=== PATIENT | female | born 1945 | race Caucasian/White ===

== ENCOUNTER → 2017-07-23 | Outpatient (CLI) | payer MEDICARE ==
--- NOTE | 2017-07-23 19:12 | Diagnostic Imaging Report ---
EXAMINATION: Bilateral diagnostic mammogram with tomography. The current study was also evaluated with a Computer Aided Detection (CAD) system. COMPARISON: 07/08/16. INDICATION: Followup asymmetry along the lateral aspect of the left CC projection. FINDINGS: The breasts are composed of heterogenously dense parenchyma which may decrease mammographic sensitivity. There is slightly less prominent asymmetry along the outer aspect of the left breast without adverse development. No definitive underlying mass is seen with tomographic evaluation. Benign-appearing calcifications are seen, bilaterally. IMPRESSION: Stable mammographic findings with the asymmetry along the outer aspect of the left breast demonstrating no definite change. This could be from nonspecific scarring or summation artifact of parenchyma. Another followup in 12 months is recommended to ensure longer-term stability. ACR BI-RADS Category 3: Probably benign findings. Result letter will be mailed to the patient. Note: At least 10% of breast cancer is not imaged by mammography. Dictated by: Dictated on workstation # [id number]
== END ==
LOC: RAD 13:56
PROVIDERS: ATTEND Nurse Practitioner Family
DX: N64.89 Other specified disorders of breast (principal)
CPT/HCPCS: 77066

== ENCOUNTER 2017-12-30 21:22 | Emergency (ER) | payer MEDICARE ==
[~2017-12-30] VITALS: Ht 160 cm; Wt 51.3 kg
--- OUTSIDE RECORDS SUMMARY | 2017-12-30 21:28 | XMS REPORT | CCD ---
Author Author Jasmyn Jimenez Organization Jasmyn Jimenez MD, [facility] Address [address] [place] [address] Phone Care Team Providers Care Band Builder Name Role Phone PP Unavailable CCM Unavailable Summary Purpose Interface Exchange Insurance Providers Payer name Policy type / Coverage type Covered libertarian ID Effective Begin Date Effective End Date [facility] Commercial Insurance [id number] 2017 Unknown Family history Grandfather Diagnosis Age At Onset Cancer Unknown Brother Diagnosis Age At Onset aortic aneurysm Unknown Heart disease Unknown Father Diagnosis Age At Onset Coronary Artery Disease Unknown Diabetes mellitus Type 2 Unknown Hypertension Unknown Stroke Unknown Brother Diagnosis Age At Onset Diabetes mellitus Type 2 Unknown Lupus Unknown Heart disease Unknown Brother Diagnosis Age At Onset Coronary Artery Disease Unknown Mother Diagnosis Age At Onset Arthritis Unknown Hypertension Unknown Social History Social History Element Codes Description Effective Dates Marital status Unknown 05/30/2015 Number of children Unknown 3 05/30/[address]: 0021002 Quit over 10 years ago 05/30/[address]: 642551 Currently drinks alcohol 05/30/2015 Frequency of drinks SNOMED CT: 233235634 1-4 drinks per week 05/30/2015 Allergies, Adverse Reactions, Alerts Allergies, Adverse Reactions, Alerts data not found Past Medical History Illness Codes Condition Status Onset Date Resolved Date Other specified cardiac arrhythmias ICD-9: 427.89 ICD-10: I49.8 Active 11/17/2017 Unknown Encounter for general adult medical examination without abnormal findings ICD-9: V70.9 ICD-10: Z00.00 Active 10/02/2016 Unknown Encounter for gynecological examination (general) (routine ) without abnormal findings ICD-9: V72.31 ICD-10: Z01.419 Active 06/16/2016 Unknown Family history of early CAD ICD-9: V17.3 Active 05/29/2015 Unknown Osteopenia ICD-9: 733.90 Active 05/29/2015 Unknown OTH SCREENING MAMMOGRAM ICD-9: V76.12 Active 05/29/2015 Unknown Problems Condition Codes Effective Dates Condition Status Other specified cardiac arrhythmias ICD-9: 427.89 ICD-10: I49.8 11/17/2017 Active Encounter for general adult medical examination without abnormal findings ICD-9: V70.9 ICD-10: Z00.00 10/02/2016 Active Encounter for gynecological examination (general) (routine ) without abnormal findings ICD-9: V72.31 ICD-10: Z01.419 06/16/2016 Active Family history of early CAD ICD-9: V17.3 05/29/2015 Active Osteopenia ICD-9: 733.90 05/29/2015 Active OTH SCREENING MAMMOGRAM ICD-9: V76.12 05/29/2015 Active Medications Medication Codes Instructions Start Date Stop Date Status Fill Instructions Premarin 0.625 mg/gram vaginal cream RxNorm: 830524 1 Gram(s) VAG BIW 06/20/2017 06/14/2018 Active Premarin 0.625 mg/gram vaginal cream RxNorm: 991580 1 Gram(s) VAG BIW 06/17/2017 06/19/2017 Inactive Premarin 0.625 mg/gram vaginal cream RxNorm: 674108 1 Gram(s) VAG BIW 07/08/2016 07/07/2016 Inactive Premarin 0.625 mg/gram vaginal cream RxNorm: 298298 1 Gram(s) VAG BIW 07/08/2016 06/16/2017 Inactive Vitamin C RxNorm: PO No Start Date Active Ocuvite tablet RxNorm : Tablet(s) PO No Start Date Active Vitamin D (with calcium) oral RxNorm: 2418 oral No Start Date Active zinc 100 mg tablet RxNorm: Tablet(s) PO No Start Date 06/29/2017 Inactive Medication Administered No Medication Administered data Immunizations No Immunization data Assessments Condition Codes Effective Dates Other specified cardiac arrhythmias ICD-10: I49.8 ICD-9: 427.89 11/17/2017 Encounter for general adult medical examination without abnormal findings ICD-10: Z00.00 ICD-9: V70.9 06/30/2017 Encounter for gynecological examination (general) (routine) without abnormal findings ICD-10: Z01.419 ICD-9: V72.31 06/17/2016 OTH SCREENING MAMMOGRAM ICD-9: V76.12 08/2015 Osteopenia ICD-9: 733.90 05/30/2015 Family history of early CAD ICD-9: V17.3 05/30/2015 Reason For Visit Reason For Visit Effective Dates Notes arrhythmia 11/17/2017 well woman exam (65+ years) 06/30/2017 Annual Medicare Wellness Exam 10/03/2016 well woman exam (65+ years) 06/17/2016 Results Observation Observation Code Item Item Code Result Date Lipid Ord30 CHOL 194 mg/dL 07/03/2017 Lipid Ord30 HDL 57.0 mg/dl 07/03/2017 Lipid Ord30 TRIG 67 mg/dL 07/03/2017 Lipid Ord30 LDL 124 mg/dL 07/03/2017 Lipid Ord30 C/HDL 3.4 Ratio 07/03/2017 Cbc With Differential Ord2 WBC 6.51 K/ul 07/03/2017 Cbc With Differential Ord2 RBC 4.56 M/ul 07/03/2017 Cbc With Differential Ord2 HGB 13.2 g/dl 07/03/2017 Cbc With Differential Ord2 Neut% 65.4 % 07/03/2017 Cbc With Differential Ord2 HCT 39.3 % 07/03/2017 Cbc With Differential Ord2 MCV 86.2 fl 07/03/2017 Cbc With Differential Ord2 Lymph% 24.0 % 07/03/2017 Cbc With Differential Ord2 MCH 28.9 pg 07/03/2017 Cbc With Differential Ord2 Charles Mix% 9.5 % 07/03/2017 Cbc With Differential Ord2 MCHC 33.6 pg 07/03/2017 Cbc With Differential Ord2 Eos% 0.6 % 07/03/2017 Cbc With Differential Ord2 PLT 280 K/ul 07/03/2017 Cbc With Differential Ord2 Baso% 0.5 % 07/03/2017 Cbc With Differential Ord2 RDW 13.2 % 07/03/2017 Cbc With Differential Ord2 Neut ABS# 4.26 K/ul 07/03/2017 Cbc With Differential Ord2 Lymph ABS# 1.56 K/ul 07/03/2017 Cbc With Differential Ord2 Charles Mix ABS# 0.6 K/ul 07/03/2017 Cbc With Differential Ord2 Eos ABS# 0.0 K/ul 07/03/2017 Cbc With Differential Ord2 Baso ABS# 0.0 K/ul 07/03/2017 Comp Metabolic Rin031 NA 140 mEq/L 07/03/2017 Comp Metabolic Btx562 K 4.0 mEq/L 07/03/2017 Comp Metabolic Tif801 CL 105 mEq/L 07/03/2017 Comp Metabolic Tor907 CO2 28.0 mEq/L 07/03/2017 Comp Metabolic Asp290 ANION GAP 11 07/03/2017 Comp Metabolic Aso225 GLUCOSE 102 mg/dL 07/03/2017 Comp Metabolic Vxk088 Creat 0.6 mg/dL 07/03/2017 Comp Metabolic Xvy298 eGFR 98 ml/min/1.73m2 07/03/2017 Comp Metabolic Fys243 BUN 17 mg/dL 07/03/2017 Comp Metabolic Mwb033 B/C Ratio 27.0 Ratio 07/03/2017 Comp Metabolic Wfg364 CALCIUM 8.5 mg/dL 07/03/2017 Comp Metabolic Ggq726 ALK PHOS 41 U/L 07/03/2017 Comp Metabolic Ueu659 AST(SGOT) 13 U/L 07/03/2017 Comp Metabolic Hrk353 ALT(SGPT) 7 U/L 07/03/2017 Comp Metabolic Qyi778 BILI T 0.4 mg/dL 07/03/2017 Comp Metabolic Doc068 ALBUMIN 3.7 g/dL 07/03/2017 Comp Metabolic Gex950 TPRO 5.8 g/dL 07/03/2017 Comp Metabolic Eeb553 GLOB 2.1 g/dL 07/03/2017 Comp Metabolic Kpq875 A/G Ratio 1.8 Ratio 07/03/2017 Comp Metabolic Ned739 Osmo 281 mOsmo 07/03/2017 Tsh Ord6 hTSH II 1.76 uIU/mL 07/03/2017 Comp Metabolic Qoz189 NA 138 mEq/L 06/19/2016 Comp Metabolic Qzd972 K 3.8 mEq/L 06/19/2016 Comp Metabolic Zyi161 CL 106 mEq/L 06/19/2016 Comp Metabolic Vvu629 CO2 29.0 mEq/L 06/19/2016 Comp Metabolic Fvq446 ANION GAP 7 06/19/2016 Comp Metabolic Xuj705 GLUCOSE 87 mg/dL 06/19/2016 Comp Metabolic Hbv751 Creat 0.7 mg/dL 06/19/2016 Comp Metabolic Smx934 eGFR 89 ml/min/1.73m2 06/19/2016 Comp Metabolic Cuo404 BUN 13 mg/dL 06/19/2016 Comp Metabolic Doj721 B/C Ratio 18.8 Ratio 06/19/2016 Comp Metabolic Kwn785 CALCIUM 8.7 mg/dL 06/19/2016 Comp Metabolic Jtm157 ALK PHOS 48 U/L 06/19/2016 Comp Metabolic Qyd988 AST(SGOT) 13 U/L 06/19/2016 Comp Metabolic Drw088 ALT(SGPT) 8 U/L 06/19/2016 Comp Metabolic Dgk309 BILI T 0.4 mg/dL 06/19/2016 Comp Metabolic Ivq540 ALBUMIN 3.9 g/dL 06/19/2016 Comp Metabolic Umx748 TPRO 5.9 g/dL 06/19/2016 Comp Metabolic Cur150 GLOB 2.0 g/dL 06/19/2016 Comp Metabolic Hru741 A/G Ratio 1.9 Ratio 06/19/2016 Comp Metabolic Zfi387 Osmo 275 mOsmo 06/19/2016 Cbc With Differential Ord2 WBC 6.12 K/ul 06/19/2016 Cbc With Differential Ord2 RBC 4.74 M/ul 06/19/2016 Cbc With Differential Ord2 HGB 13.7 g/dl 06/19/2016 Cbc With Differential Ord2 Neut% 64.4 % 06/19/2016 Cbc With Differential Ord2 HCT 41.3 % 06/19/2016 Cbc With Differential Ord2 Lymph% 24.0 % 06/19/2016 Cbc With Differential Ord2 MCV 87.1 fl 06/19/2016 Cbc With Differential Ord2 MCH 28.9 pg 06/19/2016 Cbc With Differential Ord2 Charles Mix% 10.3 % 06/19/2016 Cbc With Differential Ord2 Eos% 1.0 % 06/19/2016 Cbc With Differential Ord2 MCHC 33.2 pg 06/19/2016 Cbc With Differential Ord2 PLT 284 K/ul 06/19/2016 Cbc With Differential Ord2 Baso% 0.3 % 06/19/2016 Cbc With Differential Ord2 Neut ABS# 3.94 K/ul 06/19/2016 Cbc With Differential Ord2 RDW 13.4 % 06/19/2016 Cbc With Differential Ord2 Lymph ABS# 1.47 K/ul 06/19/2016 Cbc With Differential Ord2 Charles Mix ABS# 0.6 K/ul 06/19/2016 Cbc With Differential Ord2 Eos ABS# 0.1 K/ul 06/19/2016 Cbc With Differential Ord2 Baso ABS# 0.0 K/ul 06/19/2016 Lipid Ord30 CHOL 209 mg/dL 06/19/2016 Lipid Ord30 HDL 64.0 mg/dl 06/19/2016 Lipid Ord30 TRIG 56 mg/dL 06/19/2016 Lipid Ord30 LDL 134 mg/dL 06/19/2016 Lipid Ord30 C/HDL 3.3 Ratio 06/19/2016 Tsh Ord6 hTSH II 2.35 uIU/mL 06/19/2016 Comp Metabolic Exh292 NA 138 mEq/L 06/07/2015 Comp Metabolic Uwm456 K 3.9 mEq/L 06/07/2015 Comp Metabolic Tuo882 CL 104 mEq/L 06/07/2015 Comp Metabolic Oxx078 CO2 25.0 mEq/L 06/07/2015 Comp Metabolic Vch126 ANION GAP 13 06/07/2015 Comp Metabolic Rio069 GLUCOSE 95 mg/dL 06/07/2015 Comp Metabolic Qld550 Creat 0.7 mg/dL 06/07/2015 Comp Metabolic Jto254 eGFR 84 ml/min/1.73m2 06/07/2015 Comp Metabolic Dyz166 BUN 12 mg/dL 06/07/2015 Comp Metabolic Szq334 B/C Ratio 16.4 Ratio 06/07/2015 Comp Metabolic Oni083 CALCIUM 9.1 mg/dL 06/07/2015 Comp Metabolic Awc677 ALK PHOS 59 U/L 06/07/2015 Comp Metabolic Gkm853 AST(SGOT) 12 U/L 06/07/2015 Comp Metabolic Rog976 ALT(SGPT) 9 U/L 06/07/2015 Comp Metabolic Efc292 BILI T 0.5 mg/dL 06/07/2015 Comp Metabolic Ifp055 ALBUMIN 4.1 g/dL 06/07/2015 Comp Metabolic Vor817 TPRO 6.3 g/dL 06/07/2015 Comp Metabolic Nqy148 GLOB 2.2 g/dL 06/07/2015 Comp Metabolic Pzm092 A/G Ratio 1.9 Ratio 06/07/2015 Comp Metabolic Vme583 Osmo 275 mOsmo 06/07/2015 Cbc With Differential Ord2 WBC 6.5 K/uL 06/07/2015 Cbc With Differential Ord2 LYM 1.8 K/uL 06/07/2015 Cbc With Differential Ord2 LYM% 28.0 % 06/07/2015 Cbc With Differential Ord2 NEUT/GRAN 4.4 K/uL 06/07/2015 Cbc With Differential Ord2 NEUT/GRAN % 67.1 % 06/07/2015 Cbc With Differential Ord2 MID 0.3 K/uL 06/07/2015 Cbc With Differential Ord2 MID% 4.9 % 06/07/2015 Cbc With Differential Ord2 RBC 5.02 M/uL 06/07/2015 Cbc With Differential Ord2 HGB 14.1 g/dL 06/07/2015 Cbc With Differential Ord2 HCT 44.4 % 06/07/2015 Cbc With Differential Ord2 MCV 88 fL 06/07/2015 Cbc With Differential Ord2 MCH 28 pg 06/07/2015 Cbc With Differential Ord2 MCHC 32 g/dL 06/07/2015 Cbc With Differential Ord2 PLT 313 K/uL 06/07/2015 Cbc With Differential Ord2 RDW 13.6 % 06/07/2015 Lipid Ord30 CHOL 211 mg/dL 06/07/2015 Lipid Ord30 HDL 60.0 mg/dl 06/07/2015 Lipid Ord30 TRIG 101 mg/dL 06/07/2015 Lipid Ord30 LDL 131 mg/dL 06/07/2015 Lipid Ord30 C/HDL 3.5 Ratio 06/07/2015 Tsh Ord6 hTSH II 2.88 uIU/mL 06/07/2015 Review of Systems System Result Effective Dates Constitutional No recent illness 2017 Constitutional No chills 11/17/2017 Constitutional No fatigue 11/17/2017 Constitutional No fever 11/17/2017 Constitutional No insomnia 11/17/2017 Constitutional No malaise 11/17/2017 Eyes No blindness 11/17/2017 Eyes No vision change 11/17/2017 Ears/Nose/Throat/Neck No dental pain Ears/Nose/Throat/Neck No dizziness 2017 Ears/Nose/Throat/Neck No dysphagia 2017 Ears/Nose/Throat/Neck No headache 2017 Ears/Nose/Throat/Neck No hearing loss Ears/Nose/Throat/Neck No nasal allergies 11/17/2017 Ears/Nose/Throat/Neck No sore throat Ears/Nose/Throat/Neck No postnasal drip 11/17/2017 Ears/Nose/Throat/Neck No sinus congestion 11/17/2017 Cardiovascular No chest pain/pressure Cardiovascular No dyspnea 11/17/2017 Cardiovascular No edema 11/17/2017 Cardiovascular No exercise intolerance Cardiovascular No fatigue 11/17/2017 Cardiovascular No near-syncope/dizziness 11/17/2017 Respiratory No chest tightness 2017 Respiratory No cough 11/17/2017 Respiratory No dyspnea 11/17/2017 Respiratory No pedal edema 11/17/2017 Gastrointestinal No abdominal pain 2017 Gastrointestinal No constipation 2017 Gastrointestinal No diarrhea 11/17/2017 Gastrointestinal No gastroesophageal reflux 11/17/2017 Gastrointestinal No nausea 11/17/2017 Gastrointestinal No vomiting 11/17/2017 Genitourinary/Nephrology No dysuria 11/17 Genitourinary/Nephrology No nocturia Genitourinary/Nephrology No urinary incontinence 11/17/2017 Musculoskeletal No stiffness 11/17/2017 Musculoskeletal No swelling 11/17/2017 Musculoskeletal No muscle weakness 2017 Musculoskeletal No myalgias 11/17/2017 Dermatologic No rash 11/17/2017 Dermatologic No sores 11/17/2017 Dermatologic No scar 11/17/2017 Neurologic No dizziness 11/17/2017 Neurologic No headache 11/17/2017 Neurologic No neck pain 11/17/2017 Neurologic No syncope 11/17/2017 Psychiatric No anxiety 11/17/2017 Psychiatric No depression 11/17/2017 Constitutional No recent illness 2016 Constitutional No chills 06/30/2017 Constitutional No diaphoresis 06/30/2017 Constitutional No fever 06/30/2017 Eyes No blindness 06/30/2017 Ears/Nose/Throat/Neck No nasal allergies 06/30/2017 Ears/Nose/Throat/Neck No nasal discharge 06/30/2017 Ears/Nose/Throat/Neck No postnasal drip 06/30/2017 Ears/Nose/Throat/Neck No sinus congestion 06/30/2017 Cardiovascular No chest pain/pressure 08/2017 Cardiovascular No dyspnea 06/30/2017 Respiratory No chest congestion 2016 Respiratory No cough 06/30/2017 Respiratory No dyspnea 06/30/2017 Gastrointestinal No abdominal pain 2016 Gastrointestinal No constipation 2016 Gastrointestinal No diarrhea 06/30/2017 Gastrointestinal No nausea 06/30/2017 Gastrointestinal No vomiting 06/30/2017 Musculoskeletal No joint complaint 2016 Dermatologic No rash 06/30/2017 Neurologic No alteration of consciousness 06/30/2017 Neurologic No mental status change 2016 Psychiatric No anxiety 06/30/2017 Psychiatric No depression 06/30/2017 Constitutional No recent illness 2015 Constitutional No chills 10/03/2016 Constitutional No diaphoresis 10/03/2016 Constitutional No fever 10/03/2016 Eyes No eye erythema 10/03/2016 Ears/Nose/Throat/Neck No nasal allergies 10/03/2016 Ears/Nose/Throat/Neck No nasal discharge 10/03/2016 Ears/Nose/Throat/Neck No postnasal drip 10/03/2016 Ears/Nose/Throat/Neck No sinus congestion 10/03/2016 Cardiovascular No chest pain/pressure Cardiovascular No dyspnea 10/03/2016 Respiratory No chest congestion 2015 Respiratory No cough 10/03/2016 Respiratory No dyspnea 10/03/2016 Gastrointestinal No abdominal pain 2015 Gastrointestinal No constipation 2015 Gastrointestinal No diarrhea 10/03/2016 Gastrointestinal No nausea 10/03/2016 Gastrointestinal No vomiting 10/03/2016 Musculoskeletal No joint complaint 2015 Dermatologic No rash 10/03/2016 Neurologic No alteration of consciousness 10/03/2016 Neurologic No mental status change 2015 Constitutional No recent illness 2015 Constitutional No chills 06/17/2016 Constitutional No fatigue 06/17/2016 Constitutional No fever 06/17/2016 Constitutional No insomnia 06/17/2016 Constitutional No malaise 06/17/2016 Eyes No blindness 06/17/2016 Eyes No vision change 06/17/2016 Ears/Nose/Throat/Neck No dental pain Ears/Nose/Throat/Neck No dizziness 2015 Ears/Nose/Throat/Neck No dysphagia 2015 Ears/Nose/Throat/Neck No headache 2015 Ears/Nose/Throat/Neck No hearing loss Ears/Nose/Throat/Neck No nasal allergies 06/17/2016 Ears/Nose/Throat/Neck No sore throat Ears/Nose/Throat/Neck No postnasal drip 06/17/2016 Ears/Nose/Throat/Neck No sinus congestion 06/17/2016 Cardiovascular No chest pain/pressure Cardiovascular No dyspnea 06/17/2016 Cardiovascular No edema 06/17/2016 Cardiovascular No exercise intolerance Cardiovascular No fatigue 06/17/2016 Cardiovascular No near-syncope/dizziness 06/17/2016 Respiratory No chest tightness 2015 Respiratory No cough 06/17/2016 Respiratory No dyspnea 06/17/2016 Respiratory No pedal edema 06/17/2016 Gastrointestinal No abdominal pain 2015 Gastrointestinal No constipation 2015 Gastrointestinal No diarrhea 06/17/2016 Gastrointestinal No gastroesophageal reflux 06/17/2016 Gastrointestinal No nausea 06/17/2016 Gastrointestinal No vomiting 06/17/2016 Genitourinary/Nephrology No dysuria 06/17 Genitourinary/Nephrology No nocturia Genitourinary/Nephrology No urinary incontinence 06/17/2016 Musculoskeletal No stiffness 06/17/2016 Musculoskeletal No swelling 06/17/2016 Musculoskeletal No muscle weakness 2015 Musculoskeletal No myalgias 06/17/2016 Dermatologic No rash 06/17/2016 Dermatologic No sores 06/17/2016 Dermatologic No scar 06/17/2016 Neurologic No dizziness 06/17/2016 Neurologic No headache 06/17/2016 Neurologic No neck pain 06/17/2016 Neurologic No syncope 06/17/2016 Psychiatric No anxiety 06/17/2016 Psychiatric No depression 06/17/2016 Constitutional No recent illness 2014 Constitutional No chills 05/30/2015 Constitutional No fatigue 05/30/2015 Constitutional No fever 05/30/2015 Constitutional No insomnia 05/30/2015 Constitutional No malaise 05/30/2015 Eyes No blindness 05/30/2015 Eyes No vision change 05/30/2015 Ears/Nose/Throat/Neck No dental pain 08/2015 Ears/Nose/Throat/Neck No dizziness 2014 Ears/Nose/Throat/Neck No dysphagia 2014 Ears/Nose/Throat/Neck No headache 2014 Ears/Nose/Throat/Neck No hearing loss 08/2015 Ears/Nose/Throat/Neck No nasal allergies 05/30/2015 Ears/Nose/Throat/Neck No sore throat 08/2015 Ears/Nose/Throat/Neck No postnasal drip 05/30/2015 Ears/Nose/Throat/Neck No sinus congestion 05/30/2015 Cardiovascular No chest pain/pressure 08/2015 Cardiovascular No dyspnea 05/30/2015 Cardiovascular No edema 05/30/2015 Cardiovascular No exercise intolerance Cardiovascular No fatigue 05/30/2015 Cardiovascular No near-syncope/dizziness 05/30/2015 Respiratory No chest tightness 2014 Respiratory No cough 05/30/2015 Respiratory No dyspnea 05/30/2015 Respiratory No pedal edema 05/30/2015 Gastrointestinal No abdominal pain 2014 Gastrointestinal No constipation 2014 Gastrointestinal No diarrhea 05/30/2015 Gastrointestinal No gastroesophageal reflux 05/30/2015 Gastrointestinal No nausea 05/30/2015 Gastrointestinal No vomiting 05/30/2015 Genitourinary/Nephrology No dysuria 05/30 Genitourinary/Nephrology No nocturia 08/2015 Genitourinary/Nephrology No urinary incontinence 05/30/2015 Musculoskeletal No stiffness 05/30/2015 Musculoskeletal No swelling 05/30/2015 Musculoskeletal No muscle weakness 2014 Musculoskeletal No myalgias 05/30/2015 Dermatologic No rash 05/30/2015 Dermatologic No sores 05/30/2015 Dermatologic No scar 05/30/2015 Neurologic No dizziness 05/30/2015 Neurologic No headache 05/30/2015 Neurologic No neck pain 05/30/2015 Neurologic No syncope 05/30/2015 Psychiatric No anxiety 05/30/2015 Psychiatric No depression 05/30/2015 Physical Exam Exam Name System Name Item Name Status Result Effective Dates Notes Full Exam - General 1994 Constitutional general appearance Development: well developed 11/17/2017 None Full Exam - General 1994 Constitutional general appearance Development: appears stated age 0111/17/2017 None Full Exam - General 1994 Constitutional general appearance Hygiene/Attention to Grooming: good hygiene 11/17/2017 None Full Exam - General 1994 Eyes conjunctiva /eyelids Overall: conjunctiva clear 11/17/2017 None Full Exam - General 1994 Eyes conjunctiva /eyelids Overall: cornea clear 11/17/2017 None Full Exam - General 1994 Eyes conjunctiva /eyelids Overall: eyelids normal 11/17/2017 None Full Exam - General 1994 Eyes pupils and irises Overall: pupils equal, round, reactive to light and accomodation 11/17/2017 None Full Exam - General 1994 Ears/Nose/Throat otoscopic exam Overall: external auditory canals clear 11/17/2017 None Full Exam - General 1994 Ears/Nose/Throat otoscopic exam Overall: tympanic membranes clear 11/17/2017 None Full Exam - General 1994 Ears/Nose/Throat lips/teeth/gingiva Overall: benign lips 11/17/2017 None Full Exam - General 1994 Ears/Nose/Throat lips/teeth/gingiva Overall: normal dentition 11/17/2017 None Full Exam - General 1995 Ears/Nose/Throat oral cavity/pharynx/larynx Overall: oral mucosa clear 11/17/2017 None Full Exam - General 1995 Ears/Nose/Throat oral cavity/pharynx/larynx Overall: oropharyngeal mucosa clear 11/17/2017 None Full Exam - General 1995 Ears/Nose/Throat oral cavity/pharynx/larynx Overall: hypopharynx benign 11/17/2017 None Full Exam - General 1994 Ears/Nose/Throat oral cavity/pharynx/larynx Overall: no masses 11/17/2017 None Full Exam - General 1994 Respiratory auscultation Overall: breath sounds clear bilaterally 11/17/2017 None Full Exam - General 1994 Respiratory respiratory effort/rhythm Overall: no retractions 11/17/2017 None Full Exam - General 1994 Respiratory respiratory effort/rhythm Overall: normal rate 11/17/2017 None Full Exam - General 1994 Cardiovascular extremities Overall: no clubbing 11/17/2017 None Full Exam - General 1994 Cardiovascular auscultation of heart Overall: regular rate 11/17/2017 None Full Exam - General 1994 Cardiovascular auscultation of heart Overall: normal heart sounds 11/17/2017 None Full Exam - General 1994 Musculoskeletal spine, ribs and pelvis Overall: spine benign 11/17/2017 None Full Exam - General 1994 Musculoskeletal spine, ribs and pelvis Overall: sacroiliac joint benign 11/17/2017 None Full Exam - General 1994 Musculoskeletal spine, ribs and pelvis Overall: good posture 11/17/2017 None Full Exam - General 1994 Musculoskeletal head and neck Overall: head atraumatic 11/17/2017 None Full Exam - General 1994 Musculoskeletal head and neck Overall: cervical spine benign 11/17/2017 None Full Exam - General 1994 Psychiatric orientation/consciousness Overall: oriented to person, place and time 11/17/2017 None Full Exam - General 1994 Psychiatric mood and affect Overall: normal mood and affect 11/17/2017 None Full Exam - General 1994 Constitutional general appearance Overall: well developed 06/30/2017 None Full Exam - General 1994 Constitutional general appearance Overall: in no acute distress 06/30/2017 None Full Exam - General 1994 Constitutional general appearance Overall: well nourished 06/30/2017 None Full Exam - General 1994 Eyes conjunctiva /eyelids Overall: conjunctiva clear 06/30/2017 None Full Exam - General 1994 Eyes conjunctiva /eyelids Overall: eyelids normal 06/30/2017 None Full Exam - General 1994 Eyes pupils and irises Overall: pupils equal, round, reactive to light and accomodation 06/30/2017 None Full Exam - General 1994 Ears/Nose/Throat otoscopic exam Overall: external auditory canals clear 06/30/2017 None Full Exam - General 1994 Ears/Nose/Throat otoscopic exam Overall: tympanic membranes clear 06/30/2017 None Full Exam - General 1994 Ears/Nose/Throat lips/teeth/gingiva Overall: benign lips 06/30/2017 None Full Exam - General 1994 Ears/Nose/Throat oral cavity/pharynx/larynx Overall: oral mucosa clear 06/30/2017 None Full Exam - General 1994 Respiratory auscultation Overall: breath sounds clear bilaterally 06/30/2017 None Full Exam - General 1994 Respiratory respiratory effort/rhythm Overall: no retractions 06/30/2017 None Full Exam - General 1994 Respiratory respiratory effort/rhythm Overall: normal rate 06/30/2017 None Full Exam - General 1994 Cardiovascular extremities Overall: no clubbing 06/30/2017 None Full Exam - General 1994 Cardiovascular auscultation of heart Overall: regular rate 06/30/2017 None Full Exam - General 1994 Cardiovascular auscultation of heart Overall: normal heart sounds 06/30/2017 None Full Exam - General 1994 Abdomen abdominal exam Overall: no tenderness 06/30/2017 None Full Exam - General 1994 Abdomen abdominal exam Overall: normal bowel sounds 06/30/2017 None Full Exam - General 1994 Lymphatic neck nodes Overall: anterior cervical chain benign 06/30/2017 None Full Exam - General 1994 Lymphatic neck nodes Overall: posterior cervical chain benign 06/30/2017 None Full Exam - General 1994 Musculoskeletal head and neck Overall: head atraumatic 06/30/2017 None Full Exam - General 1994 Integument inspection of skin Overall: few scattered moles, no gross abnormalities 06/30/2017 None Full Exam - General 1994 Neurologic gait Overall: no ataxia, no unsteadiness 06/30/2017 None Full Exam - General 1994 Neurologic cranial nerves Overall: crainial nerves 2 - 12 grossly intact 06/30/2017 None Full Exam - General 1994 Psychiatric orientation/consciousness Overall: oriented to person, place and time 06/30/2017 None Full Exam - General 1994 Psychiatric mood and affect Overall: normal mood and affect 06/30/2017 None Full Exam - General 1994 Psychiatric appearance Overall: well-groomed, good eye contact 06/30/2017 None Full Exam - General 1994 Constitutional general appearance Overall: well developed 10/03/2016 None Full Exam - General 1994 Constitutional general appearance Overall: in no acute distress 10/03/2016 None Full Exam - General 1994 Constitutional general appearance Overall: well nourished 10/03/2016 None Full Exam - General 1994 Eyes conjunctiva /eyelids Overall: conjunctiva clear 10/03/2016 None Full Exam - General 1994 Eyes conjunctiva /eyelids Overall: eyelids normal 10/03/2016 None Full Exam - General 1994 Eyes pupils and irises Overall: pupils equal, round, reactive to light and accomodation 10/03/2016 None Full Exam - General 1994 Ears/Nose/Throat otoscopic exam Overall: external auditory canals clear 10/03/2016 None Full Exam - General 1994 Ears/Nose/Throat otoscopic exam Overall: tympanic membranes clear 10/03/2016 None Full Exam - General 1994 Ears/Nose/Throat lips/teeth/gingiva Overall: benign lips 10/03/2016 None Full Exam - General 1994 Ears/Nose/Throat oral cavity/pharynx/larynx Overall: oral mucosa clear 10/03/2016 None Full Exam - General 1994 Respiratory auscultation Overall: breath sounds clear bilaterally 10/03/2016 None Full Exam - General 1994 Respiratory respiratory effort/rhythm Overall: no retractions 10/03/2016 None Full Exam - General 1994 Respiratory respiratory effort/rhythm Overall: normal rate 10/03/2016 None Full Exam - General 1994 Cardiovascular extremities Overall: no clubbing 10/03/2016 None Full Exam - General 1994 Cardiovascular auscultation of heart Overall: regular rate 10/03/2016 None Full Exam - General 1994 Cardiovascular auscultation of heart Overall: normal heart sounds 10/03/2016 None Full Exam - General 1994 Abdomen abdominal exam Overall: no tenderness 10/03/2016 None Full Exam - General 1994 Abdomen abdominal exam Overall: normal bowel sounds 10/03/2016 None Full Exam - General 1994 Musculoskeletal head and neck Overall: head atraumatic 10/03/2016 None Full Exam - General 1994 Integument inspection of skin Overall: few scattered moles, no gross abnormalities 10/03/2016 None Full Exam - General 1994 Psychiatric orientation/consciousness Overall: oriented to person, place and time 10/03/2016 None Full Exam - General 1994 Psychiatric mood and affect Overall: normal mood and affect 10/03/2016 None Full Exam - General 1994 Psychiatric appearance Overall: well-groomed, good eye contact 10/03/2016 None Full Exam - General 1994 Lymphatic neck nodes Overall: posterior cervical chain benign 10/03/2016 None Full Exam - General 1994 Lymphatic neck nodes Overall: anterior cervical chain benign 10/03/2016 None Full Exam - General 1994 Neurologic cranial nerves Overall: crainial nerves 2 - 12 grossly intact 10/03/2016 None Full Exam - General 1994 Neurologic gait Overall: no ataxia, no unsteadiness 10/03/2016 None Full Exam - General 1994 Constitutional general appearance Development: well developed 06/17/2016 None Full Exam - General 1994 Constitutional general appearance Development: appears stated age 0806/17/2016 None Full Exam - General 1994 Constitutional general appearance Hygiene/Attention to Grooming: good hygiene 06/17/2016 None Full Exam - General 1994 Eyes conjunctiva /eyelids Overall: conjunctiva clear 06/17/2016 None Full Exam - General 1994 Eyes conjunctiva /eyelids Overall: cornea clear 06/17/2016 None Full Exam - General 1994 Eyes conjunctiva /eyelids Overall: eyelids normal 06/17/2016 None Full Exam - General 1994 Eyes pupils and irises Overall: pupils equal, round, reactive to light and accomodation 06/17/2016 None Full Exam - General 1994 Ears/Nose/Throat otoscopic exam Overall: external auditory canals clear 06/17/2016 None Full Exam - General 1994 Ears/Nose/Throat otoscopic exam Overall: tympanic membranes clear 06/17/2016 None Full Exam - General 1994 Ears/Nose/Throat lips/teeth/gingiva Overall: benign lips 06/17/2016 None Full Exam - General 1994 Ears/Nose/Throat lips/teeth/gingiva Overall: normal dentition 06/17/2016 None Full Exam - General 1994 Ears/Nose/Throat oral cavity/pharynx/larynx Overall: oral mucosa clear 06/17/2016 None Full Exam - General 1994 Ears/Nose/Throat oral cavity/pharynx/larynx Overall: oropharyngeal mucosa clear 06/17/2016 None Full Exam - General 1994 Ears/Nose/Throat oral cavity/pharynx/larynx Overall: hypopharynx benign 06/17/2016 None Full Exam - General 1994 Ears/Nose/Throat oral cavity/pharynx/larynx Overall: no masses 06/17/2016 None Full Exam - General 1994 Respiratory auscultation Overall: breath sounds clear bilaterally 06/17/2016 None Full Exam - General 1994 Respiratory respiratory effort/rhythm Overall: no retractions 06/17/2016 None Full Exam - General 1994 Respiratory respiratory effort/rhythm Overall: normal rate 06/17/2016 None Full Exam - General 1994 Cardiovascular extremities Overall: no clubbing 06/17/2016 None Full Exam - General 1994 Cardiovascular auscultation of heart Overall: regular rate 06/17/2016 None Full Exam - General 1994 Cardiovascular auscultation of heart Overall: normal heart sounds 06/17/2016 None Full Exam - General 1994 Abdomen abdominal exam Overall: no tenderness 06/17/2016 None Full Exam - General 1994 Abdomen abdominal exam Overall: normal bowel sounds 06/17/2016 None Full Exam - General 1994 Lymphatic neck nodes Overall: anterior cervical chain benign 06/17/2016 None Full Exam - General 1994 Lymphatic neck nodes Overall: posterior cervical chain benign 06/17/2016 None Full Exam - General 1994 Musculoskeletal spine, ribs and pelvis Overall: spine benign 06/17/2016 None Full Exam - General 1994 Musculoskeletal spine, ribs and pelvis Overall: sacroiliac joint benign 06/17/2016 None Full Exam - General 1994 Musculoskeletal spine, ribs and pelvis Overall: good posture 06/17/2016 None Full Exam - General 1994 Musculoskeletal head and neck Overall: head atraumatic 06/17/2016 None Full Exam - General 1994 Musculoskeletal head and neck Overall: cervical spine benign 06/17/2016 None Full Exam - General 1994 Integument inspection of skin Overall: few scattered moles, no gross abnormalities 06/17/2016 None Full Exam - General 1994 Neurologic deep tendon reflexes Overall: deep tendon reflexes intact 06/17/2016 None Full Exam - General 1994 Neurologic cranial nerves Overall: crainial nerves 2 - 12 grossly intact 06/17/2016 None Full Exam - General 1994 Psychiatric orientation/consciousness Overall: oriented to person, place and time 06/17/2016 None Full Exam - General 1994 Psychiatric mood and affect Overall: normal mood and affect 06/17/2016 None Full Exam - General 1994 Constitutional general appearance Development: well developed 05/30/2015 None Full Exam - General 1994 Constitutional general appearance Development: appears stated age 0805/30/2015 None Full Exam - General 1994 Constitutional general appearance Hygiene/Attention to Grooming: good hygiene 05/30/2015 None Full Exam - General 1994 Eyes conjunctiva /eyelids Overall: conjunctiva clear 05/30/2015 None Full Exam - General 1994 Eyes conjunctiva /eyelids Overall: cornea clear 05/30/2015 None Full Exam - General 1994 Eyes conjunctiva /eyelids Overall: eyelids normal 05/30/2015 None Full Exam - General 1994 Eyes pupils and irises Overall: pupils equal, round, reactive to light and accomodation 05/30/2015 None Full Exam - General 1994 Ears/Nose/Throat otoscopic exam Overall: external auditory canals clear 05/30/2015 None Full Exam - General 1994 Ears/Nose/Throat otoscopic exam Overall: tympanic membranes clear 05/30/2015 None Full Exam - General 1994 Ears/Nose/Throat lips/teeth/gingiva Overall: benign lips 05/30/2015 None Full Exam - General 1994 Ears/Nose/Throat lips/teeth/gingiva Overall: normal dentition 05/30/2015 None Full Exam - General 1994 Ears/Nose/Throat oral cavity/pharynx/larynx Overall: oral mucosa clear 05/30/2015 None Full Exam - General 1994 Ears/Nose/Throat oral cavity/pharynx/larynx Overall: oropharyngeal mucosa clear 05/30/2015 None Full Exam - General 1994 Ears/Nose/Throat oral cavity/pharynx/larynx Overall: hypopharynx benign 05/30/2015 None Full Exam - General 1994 Ears/Nose/Throat oral cavity/pharynx/larynx Overall: no masses 05/30/2015 None Full Exam - General 1994 Respiratory auscultation Overall: breath sounds clear bilaterally 05/30/2015 None Full Exam - General 1994 Respiratory respiratory effort/rhythm Overall: no retractions 05/30/2015 None Full Exam - General 1994 Respiratory respiratory effort/rhythm Overall: normal rate 05/30/2015 None Full Exam - General 1994 Cardiovascular extremities Overall: no clubbing 05/30/2015 None Full Exam - General 1994 Cardiovascular auscultation of heart Overall: regular rate 05/30/2015 None Full Exam - General 1994 Cardiovascular auscultation of heart Overall: normal heart sounds 05/30/2015 None Full Exam - General 1994 Abdomen abdominal exam Overall: no tenderness 05/30/2015 None Full Exam - General 1994 Abdomen abdominal exam Overall: normal bowel sounds 05/30/2015 None Full Exam - General 1994 Lymphatic neck nodes Overall: anterior cervical chain benign 05/30/2015 None Full Exam - General 1994 Lymphatic neck nodes Overall: posterior cervical chain benign 05/30/2015 None Full Exam - General 1994 Musculoskeletal spine, ribs and pelvis Overall: spine benign 05/30/2015 None Full Exam - General 1994 Musculoskeletal spine, ribs and pelvis Overall: sacroiliac joint benign 05/30/2015 None Full Exam - General 1994 Musculoskeletal spine, ribs and pelvis Overall: good posture 05/30/2015 None Full Exam - General 1994 Musculoskeletal head and neck Overall: head atraumatic 05/30/2015 None Full Exam - General 1994 Musculoskeletal head and neck Overall: cervical spine benign 05/30/2015 None Full Exam - General 1994 Integument inspection of skin Overall: few scattered moles, no gross abnormalities 05/30/2015 None Full Exam - General 1994 Neurologic deep tendon reflexes Overall: deep tendon reflexes intact 05/30/2015 None Full Exam - General 1994 Neurologic cranial nerves Overall: crainial nerves 2 - 12 grossly intact 05/30/2015 None Full Exam - General 1994 Psychiatric orientation/consciousness Overall: oriented to person, place and time 05/30/2015 None Full Exam - General 1994 Psychiatric mood and affect Overall: normal mood and affect 05/30/2015 None Procedures Procedure Codes Date PPPS, SUBSEQ VISIT CPT -4: G0439 10/03/2016 Vital Signs Date Vital 11/17/2017 Blood Pressure 1: 122/78 Code : 8480-6 BMI: 19.7 Code : 16906-1 Heart Rate 1 : 69 bpm Height: 5'4" SpO2: 99% Weight: 115 lbs 06/30/2017 Blood Pressure 1: 136/72 Code : 8480-6 BMI: 19.8 Code : 98890-5 Heart Rate 1 : 54 bpm Height: 5'4" SpO2: 99% Weight: 115 lbs 8 oz 10/03/2016 Blood Pressure 1: 128/72 Code : 8480-6 BMI: 20.3 Code : 31528-7 Heart Rate 1 : 67 bpm Height: 5'4" SpO2: 97% Waist Measure (cm): 69 cm Weight: 118 lbs 06/17/2016 Blood Pressure 1: 136/68 Code : 8480-6 BMI: 19.9 Code : 35814-5 Heart Rate 1 : 67 bpm Height: 5'4" SpO2: 97% Weight: 116 lbs 05/30/2015 Blood Pressure 1: 136/68 Code : 8480-6 BMI: 19.4 Code : 82572-2 Heart Rate 1 : 68 bpm Height: 5'4" SpO2: 94% Weight: 113 lbs Functional Status No Functional Status data History of Present Illness Symptom Name Status Result Effective Date Notes arrhythmia Quality acute 11/17/2017 None arrhythmia Quality tachycardia 11/17/2017 None arrhythmia Onset and Resolution sudden in onset 11/17/2017 None arrhythmia Pertinent Findings Denies dyspnea 11/17/2017 None arrhythmia Pertinent Findings Denies dizziness 11/17/2017 None arrhythmia Pertinent Findings Denies nausea 11/17/2017 None arrhythmia Onset of Symptom 5 days ago 11/17/2017 None arrhythmia 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) well woman exam (65+ years) Menstrual History menopause at age _ 06/30/2017 None well woman exam (65+ years) Nutrition and Exercise normal weight 06/30/2017 None well woman exam (65+ years) Nutrition and Exercise regular diet 06/30/2017 None well woman exam (65+ years) Lifestyle regular seatbelt use 06/30/2017 None well woman exam (65+ years) Lifestyle family supportive 06/30/2017 None well woman exam (65+ years) Lifestyle satisfactory work/assisted experience 06/30/2017 None well woman exam (65+ years) Lifestyle normal sleep patterns 06/30/2017 None well woman exam (65+ years) Lifestyle normal amount of stress 06/30/2017 None Annual Medicare Wellness Exam Alcohol Use drinks 2 days per week 10/03/2016 None Annual Medicare Wellness Exam Aspirin Use no 10/03/2016 None Annual Medicare Wellness Exam Blood Glucose (self reported) don't know 10/03/2016 None Annual Medicare Wellness Exam Blood Pressure (self reported ) low / normal (120/80) 10/03/2016 None Annual Medicare Wellness Exam Cholesterol (self reported) borderline high (200-239) 10/03/2016 None Annual Medicare Wellness Exam Depression (last 6 months) almost never 10/03/2016 None Annual Medicare Wellness Exam Depression or Hopelessness almost never 10/03/2016 None Annual Medicare Wellness Exam Describe Your Health excellent 10/03/2016 None Annual Medicare Wellness Exam Exercise Habits exercises 5 days per week 10/03/2016 None Annual Medicare Wellness Exam Exercise Habits exercises 90 minutes per day 10/03/2016 None Annual Medicare Wellness Exam Handling Stress usually aylin effectively 10/03/2016 None Annual Medicare Wellness Exam Hemaglobin A-1C (self reported ) don't know 10/03/2016 None Annual Medicare Wellness Exam Hours of Sleep 7 10/03/2016 None Annual Medicare Wellness Exam Interaction with Friends yes 10/03/2016 None Annual Medicare Wellness Exam Interests & Pleasure daily 10/03/2016 None Annual Medicare Wellness Exam Life Satisfaction very satisfied 10/03/2016 None Annual Medicare Wellness Exam Motor Vehicle Safety always fastens seat belt: y 10/03/2016 None Annual Medicare Wellness Exam Motor Vehicle Safety drives after drinking: n 10/03/2016 None Annual Medicare Wellness Exam Motor Vehicle Safety rides with someone who has been drinking: n 2015 None Annual Medicare Wellness Exam Nutrition servings of fried food / high fat foods per day: 0 2015 None Annual Medicare Wellness Exam Nutrition servings of high fiber / whole grain per day: 3 10/03/2016 None Annual Medicare Wellness Exam Nutrition servings of vegetables / fruit per day: 3 10/03/2016 None Annual Medicare Wellness Exam Smoking and Tobacco Use non smoker 10/03/2016 None Annual Medicare Wellness Exam Social & Emotional Support always 10/03/2016 None Annual Medicare Wellness Exam Stress almost never 10/03/2016 None Annual Medicare Wellness Exam Sun Exposure protects skin when outdoors: y 10/03/2016 None well woman exam (65+ years) Menstrual History menopause at age _ 06/17/2016 None well woman exam (65+ years) Nutrition and Exercise normal weight 06/17/2016 None well woman exam (65+ years) Nutrition and Exercise regular diet 06/17/2016 None Advance Directives No Advance Directive data Encounters Encounter Performer Location Codes Date [id number]) [id number] EST. PATIENT, LEVEL III Diagnosis: Other specified cardiac arrhythmias[ICD10: I49.8] [facility] CPT-4: 42669 11/17/2017 ([id number]) PER PM REEVAL EST PAT 65+ YR Diagnosis: Encounter for general adult medical examination without abnormal findings[ICD10: Z00.00] [facility] CPT-4: 74236 06/30/2017 ([id number]) [id number] EST. PATIENT, LEVEL III Diagnosis: Encounter for gynecological examination (general) (routine) without abnormal findings[ICD10: Z01.419] [facility] CPT-4: 22691 06/17/2016 ([id number]) OFFICE VISIT, NEW - LEVEL 3 Diagnosis: Osteopenia[ICD9: 733.90] Diagnosis: OTH SCREENING MAMMOGRAM[ICD9: V76.12] Diagnosis: Family history of early CAD[ICD9: V17.3] [facility] CPT-4: 54179 05/30/2015 Plan of Care Planned Activity Notes Codes Status Date Visit Plan: Tachycardia - not recurrent - occuring during activity - I have recommended a referral to Dr. Germain for stress testing. 11/17/2017 Patient Education: Patient Medication Summary Completed 11/17/2017 Care Plan: Referral Order SNOMED-CT : [id number] Pending 11/17/2017 Appointment: Fifi Constantino WPtel: [phone] [id number] [facility] - Annual Wellness Visit 10/07/2017 Visit Plan: Well Adult - pt was counseled about diet, exercise, and encouraged to follow a heart healthy diet and increase activity level. The patient was instructed to RTC yearly for well adult exams and PRN for acute illnesses. The pt was also instructed to have yearly labs for check of cholesterol, thyroid, chem panel, CBC, and renal functioning. 06/30/2017 Patient Education: Patient Medication Summary Completed 06/30/2017 Visit Plan: Medicare Exam - today we discussed the patients past history, immunizations, preventative exams/evaluations - colonoscopy, fecal occult blood testing, routine labs for renal function, glucose, cholesterol, osteoporosis evaluations, cardiovascular testing and cancer screenings. We have also discussed mental health and the signs/symptoms of depression. The patient was advised of home safety evaluations and the need to make sure that as the aging process continues, we need to be aware of different ways to make the home a safer place to reside. The patient has also been counseled that exercise is necessary - and of utmost importance as we age to help decrease fall risk and to maintain independece in the home. Today we discussed the need for the patient to create paperwork for Advanced directives as well as for the patient to provide this office with a copy of her DOPA paperwork for health care surrogate. 10/03/2016 Appointment: [facility]ino [facility]el[phone] [facility] - Annual Wellness Visit 10/03/2016 Patient Education: Patient Medication Summary Completed 10/03/2016 Appointment: Roxanna Mijares WPtel: [phone] [id number] - Annual Wellness Visit 09/11/2016 Visit Plan: Well Adult - pt was counseled about diet, exercise, and encouraged to follow a heart healthy diet and increase activity level. The patient was instructed to RTC yearly for well adult exams and PRN for acute illnesses. The pt was also instructed to have yearly labs for check of cholesterol, thyroid, chem panel, CBC, and renal functioning. 06/17/2016 Appointment: Jasmyn Jimenze WPtel: [phone] [facility] Well Woman 06/17/2016 Patient Education: Patient Medication Summary Completed 06/17/2016 Care Plan: PAP Pending 06/17/2016 Visit Plan: Well Adult- pt to have fasting labs - check mammogram, fasting lipid with family history of CAD. 05/30/2015 Appointment: Jasmyn Jimenez WPtel: [facility] [place] ([place]) New Patient 05/30/2015 Patient Education: Patient Medication Summary Completed 05/30/2015 Care Plan[facility] 89659-8 Ordered 05/30/2015 Referral: Mable Germain Referral Appointment Requested Instructions Comment . Well Adult - pt was counseled about diet, exercise, and encouraged to follow a heart healthy diet and increase activity level. The patient was instructed to RTC yearly for well adult exams and PRN for acute illnesses. The pt was also instructed to have yearly labs for check of cholesterol, thyroid, chem panel, CBC, and renal functioning. . Well Adult- pt to have fasting labs - check mammogram, fasting lipid with family history of CAD. . Tachycardia - not recurrent - occuring during activity - I have recommended a referral to Dr. Germain for stress testing. . Medicare Exam - today we discussed the patients past history, immunizations, preventative exams/evaluations - colonoscopy, fecal occult blood testing, routine labs for renal function, glucose, cholesterol, osteoporosis evaluations, cardiovascular testing and cancer screenings. We have also discussed mental health and the signs/symptoms of depression. The patient was advised of home safety evaluations and the need to make sure that as the aging process continues, we need to be aware of different ways to make the home a safer place to reside. The patient has also been counseled that exercise is necessary - and of utmost importance as we age to help decrease fall risk and to maintain independece in the home. Today we discussed the need for the patient to create paperwork for Advanced directives as well as for the patient to provide this office with a copy of her DOPA paperwork for health care surrogate. . Well Adult - pt was counseled about diet, exercise, and encouraged to follow a heart healthy diet and increase activity level. The patient was instructed to RTC yearly for well adult exams and PRN for acute illnesses. The pt was also instructed to have yearly labs for check of cholesterol, thyroid, chem panel, CBC, and renal functioning.
--- OUTSIDE RECORDS SUMMARY | 2017-12-30 21:28 | XMS REPORT | Continuity of Care Document ---
Author Author [facility] Organization [facility] Address Unknown Phone Unavailable Allergies There is no data. Medications There is no data. Problems Date Dx Coded Attending Type Code Diagnosis Diagnosed By 06/19/2015 RADHA BOTELLO MD Ot V76.12 06/25/2016 Ot V76.12 OTH SCREEN MAMMO-MALIGN NEOPLASM OF HIWOT 06/25/2016 Ot 733.90 BONE CARTILAGE DIS NOS 06/25/2016 Ot 781.91 LOSS OF HEIGHT 06/25/2016 KATIE FIGUEROA MD Ot V76.12 OTH SCREEN MAMMO-MALIGN NEOPLASM OF HIWOT 06/25/2016 KATIE FIGUEROA MD Ot V17.49 FAMILY HISTORY OF OTHER CARDIOVASCULAR D 06/25/2016 KATIE FIGUEROA MD Ot V76.12 OTH SCREEN MAMMO-MALIGN NEOPLASM OF HIWOT 06/25/2016 RADHA BOTELLO MD Ot V76.12 OTH SCREEN MAMMO-MALIGN NEOPLASM OF HIWOT 06/25/2016 RADHA BOTELLO MD Ot Z12.31 ENCNTR SCREEN MAMMOGRAM FOR MALIGNANT NE 06/26/2016 RADHA BOTELLO MD Ot Z12.31 ENCNTR SCREEN MAMMOGRAM FOR MALIGNANT NE 06/26/2016 RADHA BOTELLO MD Ot Z12.31 ENCNTR SCREEN MAMMOGRAM FOR MALIGNANT NE 07/09/2016 RADHA BOTELLO MD Ot Z12.31 ENCNTR SCREEN MAMMOGRAM FOR MALIGNANT NE 07/09/2016 LUCI WEATHERS APRN Ot R92.8 OTH ABN AND INCONCLUSIVE FINDINGS ON DX 07/14/2016 LUCI WEATHERS APRN Ot R92.8 OTH ABN AND INCONCLUSIVE FINDINGS ON DX 07/19/2016 LUCI WEATHERS APRN Ot R92.8 OTH ABN AND INCONCLUSIVE FINDINGS ON DX 07/07/2017 LUCI WEATHERS APRN Ot Z12.31 ENCNTR SCREEN MAMMOGRAM FOR MALIGNANT NE 07/23/2017 Ot 733.90 BONE CARTILAGE DIS NOS 07/23/2017 Ot 781.91 LOSS OF HEIGHT 07/23/2017 KATIE FIGUEROA MD Ot V76.12 OTH SCREEN MAMMO-MALIGN NEOPLASM OF HIWOT 07/23/2017 KATIE FIGUEROA MD Ot V17.49 FAMILY HISTORY OF OTHER CARDIOVASCULAR D 07/23/2017 KATIE FIGUEROA MD Ot V76.12 OTH SCREEN MAMMO-MALIGN NEOPLASM OF HIWOT 07/23/2017 RADHA BOTELLO MD Ot V76.12 OTH SCREEN MAMMO-MALIGN NEOPLASM OF HIWOT 07/23/2017 RADHA BOTELLO MD Ot Z12.31 ENCNTR SCREEN MAMMOGRAM FOR MALIGNANT NE 07/23/2017 LUCI WEATHERS APRN Ot R92.8 OTH ABN AND INCONCLUSIVE FINDINGS ON DX 07/23/2017 LUCI WEATHERS APRN Ot N64.89 OTHER SPECIFIED DISORDERS OF BREAST 08/05/2017 LUCI WEATHERS APRN Ot N64.89 OTHER SPECIFIED DISORDERS OF BREAST Procedures There is no data. Results There is no data. Encounters ACCT No. Visit Date/Time Discharge Status Pt. Type Provider Facility Loc./Unit Complaint [id number] 07/23/2017 13:56:00 07/23/2017 23:59:59 CLS Outpatient LUCI WEATHERS APRN [facility] RAD FOLLOW UP LT BREAST ASSYMETRY [id number] 07/04/2017 08:03:00 07/04/2017 23:59:59 CLS Preadmit LUCI WEATHERS APRN [facility] RAD SCREENING [id number] 07/08/2016 07:16:00 07/08/2016 23:59:59 CLS Outpatient LUCI WEATHERS APRN [facility] RAD ABN MAMMO [id number] 06/25/2016 09:19:00 06/25/2016 23:59:59 CLS Outpatient RADHA BOTELLO MD [facility] RAD SCREENING [id number] 06/07/2015 10:44:00 06/07/2015 23:59:59 CLS Outpatient RADHA BOTELLO MD [facility] RAD SCREENING [id number] 03/16/2014 08:06:00 03/16/2014 23:59:59 CLS Outpatient KATIE FIGUEROA MD [facility] RAD FAMILY HISTORY AORTIC ANEURYSM,SCREENING [id number] 03/11/2013 10:44:00 03/11/2013 23:59:59 CLS Outpatient KATIE FIGUEROA MD [facility] RAD SCREENING [id number] 03/13/2012 10:37:00 Document Registration [id number] 01/24/2012 10:13:00 Document Registration
--- NOTE | 2017-12-30 21:34 | ED General ---
General Stated Complaint: NAUSEA;DRY MOUTH;CHILLS Source of Information: Patient Exam Limitations: No Limitations (ALFONZO ALBRECHT APRN) History of Present Illness Date Seen by Provider: Dec 30, 2017 Time Seen by Provider: 21:31 Initial Comments To ER with reports of dry mouth, Nausea that has improved, palpitations, chills. The symptoms began this evening while at dinner at a friend's house. Now she feels back to normal with the exception of weakness. She had a workup done today at [facility] she states after being referred there by Dr. Germain. This workup included "ultrasound of the arteries in my legs and my aorta and an EKG". She had a similar episode a few months ago of palpitations and nausea while shoveling snow that led to today's workup. She is scheduled to have a stress test in the upcoming weeks with Dr germain. Timing/Duration: 1-3 Hours Severity: Moderate Associated Systoms: Malaise, Nausea/Vomiting (ALFONZO ALBRECHT APRN) Allergies and Home Medications Allergies Coded Allergies: acetaminophen (Verified Allergy, Unknown, 12/30/17) propoxyphene (Verified Allergy, Unknown, 12/30/17) Patient Home Medication List Home Medication List Reviewed: Yes (ALFONZO ALBRECHT APRN) Constitutional: see HPI, chills EENTM: see HPI Respiratory: no symptoms reported, see HPI, No short of breath Cardiovascular: see HPI, No chest pain, palpitations Gastrointestinal: nausea, No vomiting Genitourinary: no symptoms reported Musculoskeletal: no symptoms reported Skin: no symptoms reported Psychiatric/Neurological: No Symptoms Reported Hematologic/Lymphatic: No Symptoms Reported (ALFONZO ALBRECHT APRN) Past Iyvftqb-Vjaryj-Cgxapf Hx Patient Social History Recent Foreign Travel: No Contact w/Someone Who Travel: No (ALFONZO ALBRECHT APRN) Physical Exam Vital Signs Vital Signs - First Documented (LEIF TERRELL MD) Vital Signs Capillary Refill : (ALFONZO ALBRECHT APRN) General Appearance: No Apparent Distress, WD/WN Eyes: Bilateral Eye Normal Inspection, Bilateral Eye PERRL, Bilateral Eye EOMI HEENT: PERRL/EOMI, TMs Normal Neck: Full Range of Motion, Normal Inspection Respiratory: Lungs Clear, Normal Breath Sounds, No Accessory Muscle Use, No Respiratory Distress Cardiovascular: Regular Rate, Rhythm, Normal Peripheral Pulses Gastrointestinal: Normal Bowel Sounds, Non Tender, Soft Extremity: Normal Capillary Refill, Normal Inspection Neurologic/Psychiatric: Alert, Oriented x3, No Motor/Sensory Deficits Skin: Normal Color, Warm/Dry (ALFONZO ALBRECHT APRN) Progress/Results/Core Measures Suspected Sepsis SIRS Temperature: Pulse: Respiratory Rate: Laboratory Tests 12/30/17 21:35: White Blood Count 10.0 Blood Pressure / Mean: Laboratory Tests 12/30/17 21:35: Creatinine 0.82, INR Comment 1.0, Platelet Count 358, Total Bilirubin 0.3 (ALFONZO ALBRECHT APRN) Results/Orders Lab Results Laboratory Tests Test 12/30/17 21:35 12/30/17 22:41 Range/Units White Blood Count 10.0 4.3-11.0 10^3/uL Red Blood Count 5.02 4.35-5.85 10^6/uL Hemoglobin 14.4 11.5-16.0 G/DL Hematocrit 42 35-52 % Mean Corpuscular Volume 85 80-99 FL Mean Corpuscular Hemoglobin 29 25-34 PG Mean Corpuscular Hemoglobin Concent 34 32-36 G/DL Red Cell Distribution Width 13.0 10.0-14.5 % Platelet Count 358 130-400 10^3/uL Mean Platelet Volume 8.7 7.4-10.4 FL Neutrophils (%) (Auto) 74 42-75 % Lymphocytes (%) (Auto) 17 12-44 % Monocytes (%) (Auto) 9 0-12 % Eosinophils (%) (Auto) 0 0-10 % Basophils (%) (Auto) 0 0-10 % Neutrophils # (Auto) 7.4 1.8-7.8 X 10^3 Lymphocytes # (Auto) 1.7 1.0-4.0 X 10^3 Monocytes # (Auto) 0.9 0.0-1.0 X 10^3 Eosinophils # (Auto) 0.0 0.0-0.3 10^3/uL Basophils # (Auto) 0.0 0.0-0.1 10^3/uL Prothrombin Time 13.3 12.2-14.7 SEC INR Comment 1.0 0.8-1.4 D-Dimer 0.35 0.00-0.49 UG/ML Sodium Level 138 135-145 MMOL/L Potassium Level 3.5 L 3.6-5.0 MMOL/L Chloride Level 105 98-107 MMOL/L Carbon Dioxide Level 24 21-32 MMOL/L Anion Gap 9 5-14 MMOL/L Blood Urea Nitrogen 15 7-18 MG/DL Creatinine 0.82 0.60-1.30 MG/DL Estimat Glomerular Filtration Rate > 60 BUN/Creatinine Ratio 18 Glucose Level 138 H 70-105 MG/DL Calcium Level 8.4 L 8.5-10.1 MG/DL Magnesium Level 2.1 1.8-2.4 MG/DL Total Bilirubin 0.3 0.1-1.0 MG/DL Aspartate Amino Transf (AST/SGOT) 17 5-34 U/L Alanine Aminotransferase (ALT/SGPT) 14 0-55 U/L Alkaline Phosphatase 50 40-136 U/L Myoglobin 37.5 10.0-92.0 NG/ML Troponin I < 0.30 <0.30 NG/ML B-Type Natriuretic Peptide 54.8 <100.0 PG/ML Total Protein 6.5 6.4-8.2 GM/DL Albumin 3.9 3.2-4.5 GM/DL Thyroid Stimulating Hormone (TSH) 2.43 0.35-4.94 UIU/ML Free Thyroxine 1.00 0.70-1.48 NG/DL Urine Color YELLOW Urine Clarity CLEAR Urine pH 7 5-9 Urine Specific [place] 1.010 L 1.016-1.022 Urine Protein NEGATIVE NEGATIVE Urine Glucose (UA) NEGATIVE NEGATIVE Urine Ketones NEGATIVE NEGATIVE Urine Nitrite NEGATIVE NEGATIVE Urine Bilirubin NEGATIVE NEGATIVE Urine Urobilinogen NORMAL NORMAL MG/DL Urine Leukocyte Esterase 3+ H NEGATIVE Urine RBC (Auto) NEGATIVE NEGATIVE Urine RBC NONE /HPF Urine WBC 10-25 H /HPF Urine Squamous Epithelial Cells 10-25 H /HPF Urine Crystals NONE /LPF Urine Bacteria FEW H /HPF Urine Casts NONE /LPF Urine Mucus NEGATIVE /LPF Urine Culture Indicated YES (LEIF TERRELL MD) Medications Given in ED Current Medications Medications Dose Ordered Sig/Maggie Route Start Time Stop Time Status Last Admin Dose Admin Aspirin 324 mg ONCE ONCE PO 12/30/17 21:45 12/30/17 21:46 DC 12/30/17 21:53 324 MG (LEIF TERRELL MD) Vital Signs/I&O Vital Sign - Last 12Hours 12/30/17 12/30/17 21:40 21:40 Pulse 73 Resp 16 B/P (MAP) 143/83 (103) Pulse Ox 98 O2 Delivery Room Air Room Air (LEIF TERRELL MD) Vital Signs/I&O Capillary Refill : (ALFONZO ALBRECHT APRN) Progress Note : Progress Note 2300: Assumed care of the patient from Alfonzo Albrecht APRN pending . 2343: I did have extensive conversation about risk and benefits with the patient regarding her current presentation. Patient had palpitations and dizziness without significant chest pain. She is currently under workup with cardiology for this and does have stress test scheduled as well as further evaluation cardiology. She did have significant workup today. We did discuss the risk and benefits of hospitalization versus going home at length and patient would like to go home. 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 She will return for any chest pain or other events and we would admit her at that point and she agrees. She is pain-free and without symptoms since arrival. Discharged home with return precautions. Patient verbalize understanding instructions and agreement with plan. (LEIF TERRELL MD) ECG Initial ECG Impression Date: Dec 30, 2017 Initial ECG Impression Time: 21:29 Initial ECG Rate: 68 Initial ECG Rhythm: Normal Sinus Initial ECG Comparisson: No Previous ECG Available Comment Sinus rhythm with normal axis. No evidence of ST elevation PA. No previous available for comparison. Interpreted by me. (LEIF TERRELL MD) Diagnostic Imaging Diagonstic Imaging: Xray Plain Films/CT/US/NM/MRI: chest Comments No acute findings. Reviewed: Reviewed by Me (LEIF TERRELL MD) Departure Communication (Admissions) Progress Notes 3997-Care turned over to Dr Terrell. UA pending. (ALFONZO ALBRECHT APRN) Impression Impression: Primary Impression: Heart palpitations Disposition: HOME, SELF-CARE Condition: Improved Departure-Patient Inst. Decision time for Depature: 23:46 (LEIF TERRELL MD) Referrals: RADHA BOTELLO MD (PCP/Family) Primary Care Physician Patient Instructions: Chest Pain (DC), Palpitations (DC) Add. Discharge Instructions: Call Dr. Germain's office in the morning for appointment this week if possible. Continue normal diet and home medications as previously prescribed. Drink plenty of fluids. Return for worsening, fever, vomiting, weakness, breathing problems, chest pain, sweating or other concerns as needed. Copy Copies To 1: KAROLINE GERMAIN MD, PETER J APRN Dec 30, 2017 21:34 LEIF TERRELL MD Dec 30, 2017 23:46
[2017-12-30] MEDS ORDERED: ASPIRIN 81 MG CHEW (CHILDREN'S ASA) PO ONE (21:45)
[2017-12-30 21:48] LABS: BASOPHILS % (AUTO) 0 % (0-10); EOSINOPHILS % (AUTO) 0 % (0-10); HEMATOCRIT 42 % (35-52); HEMOGLOBIN 14.4 G/DL (11.5-16.0); LYMPHOCYTES # (AUTO) 1.7 X 10^3 (1.0-4.0); LYMPHOCYTES % (AUTO) 17 % (12-44); MEAN CORPUSCULAR HEMOGLOBIN 29 PG (25-34); MEAN CORPUSCULAR HGB CONC 34 G/DL (32-36); MEAN CORPUSCULAR VOLUME 85 FL (80-99); MEAN PLATELET VOLUME 8.7 FL (7.4-10.4); MONOCYTES # (AUTO) 0.9 X 10^3 (0.0-1.0); MONOCYTES % (AUTO) 9 % (0-12); NEUTROPHILS # (AUTO) 7.4 X 10^3 (1.8-7.8); NEUTROPHILS % (AUTO) 74 % (42-75); PLATELET COUNT 358 10^3/uL (130-400); RED BLOOD COUNT 5.02 10^6/uL (4.35-5.85)
[2017-12-30 21:56] LABS: PROTHROMBIN TIME PATIENT 13.3 SEC (12.2-14.7)
[2017-12-30 22:05] LABS: ALANINE AMINOTRANSFERASE 14 U/L (0-55); ALBUMIN 3.9 GM/DL (3.2-4.5); ALKALINE PHOSPHATASE 50 U/L (40-136); BILIRUBIN,TOTAL 0.3 MG/DL (0.1-1.0); BUN/CREATININE RATIO 18; CALCIUM 8.4 MG/DL (8.5-10.1); CARBON DIOXIDE 24 MMOL/L (21-32); CHLORIDE 105 MMOL/L (98-107); CREATININE SERUM 0.82 MG/DL (0.60-1.30); GFR ESTIMATED > 60; GLUCOSE 138 MG/DL (70-105); MAGNESIUM 2.1 MG/DL (1.8-2.4); POTASSIUM 3.5 MMOL/L (3.6-5.0); SODIUM 138 MMOL/L (135-145); TOTAL PROTEIN 6.5 GM/DL (6.4-8.2)
[2017-12-30 22:27] LABS: MYOGLOBIN SERUM 37.5 NG/ML (10.0-92.0)
[2017-12-30 22:51] LABS: BILIRUBIN,URINE NEGATIVE (NEGATIVE); CLARITY,URINE CLEAR; COLOR,URINE YELLOW; GLUCOSE, URINE (UA) NEGATIVE (NEGATIVE); KETONES,URINE NEGATIVE (NEGATIVE); LEUKOCYTE ESTERASE ,URINE 3+ (NEGATIVE); NITRITE,URINE NEGATIVE (NEGATIVE); PH,URINE 7 (5-9); PROTEIN,URINE NEGATIVE (NEGATIVE); UROBILINOGEN,URINE NORMAL (NORMAL)
[2017-12-30 23:07] LABS: BACTERIA,URINE FEW /HPF
[2017-12-30 23:54] VITALS: BP 121/63
--- NOTE | 2017-12-31 07:31 | Diagnostic Imaging Report ---
INDICATION: Chest pain. FINDINGS: Portable chest show the lungs to be well-aerated. There are no infiltrates. Heart is not enlarged. There is no pulmonary edema. No hilar adenopathy. No pneumothorax or pleural effusion. No bony abnormalities. IMPRESSION: Negative portable chest. Dictated by: Dictated on workstation # [id number]
== END 2017-12-30 23:54 | disposition home or self-care (01) ==
LOC: EDUNIT# 21:22 → ER 21:24
DX: R00.2 Palpitations (principal); Z88.6 Allergy status to analgesic agent
CPT/HCPCS: 36415; 71045; 80053; 81000; 83735; 83874; 83880; 84439; 84443; 84484; 85025; 85379; 85610; 87088; 93005; 93041

== ENCOUNTER → 2018-01-14 | Outpatient (CLI) | payer MEDICARE | LOC: CARD 08:52 | PROVIDERS: ATTEND Internal Medicine Cardiovascular Disease | DX: R00.2 Palpitations (principal); R00.0 Tachycardia, unspecified; Z82.49 Family history of ischemic heart disease and other diseases of the circulatory system | CPT/HCPCS: 93306; 93351 ==

== ENCOUNTER 2018-12-03 08:47 | Outpatient (CLI) | payer MEDICARE ==
[~2018-12-03] VITALS: Ht 160 cm; Wt 51.3 kg
[2018-12-03] MEDS ORDERED: NS IV 1000 ML 1,000 ML ONE (09:06)
[2018-12-03] MEDS ORDERED: ONDANSETRON 4 MG/2 ML (SDV) Z0FRAN ONE (09:25)
[2018-12-03 09:32] LABS: MEAN PLATELET VOLUME 8.8 FL (7.4-10.4); RED CELL DISTRIBUTION WIDTH 12.9 % (10.0-14.5); WHITE BLOOD COUNT 9.9 10^3/uL (4.3-11.0)
[2018-12-03 09:56] LABS: ALANINE AMINOTRANSFERASE 18 U/L (0-55); ALBUMIN 3.8 GM/DL (3.2-4.5); ALKALINE PHOSPHATASE 46 U/L (40-136); BILIRUBIN,TOTAL 0.4 MG/DL (0.1-1.0); BUN/CREATININE RATIO 15; CALCIUM 8.7 MG/DL (8.5-10.1); CARBON DIOXIDE 24 MMOL/L (21-32); CHLORIDE 106 MMOL/L (98-107); CREATININE SERUM 0.82 MG/DL (0.60-1.30); GFR ESTIMATED > 60; GLUCOSE 131 MG/DL (70-105); POTASSIUM 3.7 MMOL/L (3.6-5.0); SODIUM 140 MMOL/L (135-145); TOTAL PROTEIN 6.6 GM/DL (6.4-8.2)
[2018-12-03] MEDS ORDERED: NS IV 1000 ML 1,000 ML IV ONE (10:00)
[2018-12-03] MEDS ORDERED: ONDANSETRON 4 MG/2 ML (SDV) Z0FRAN IV PRN (10:00)
[2018-12-03] MEDS ORDERED: ONDANSETRON 4 MG/2 ML (SDV) Z0FRAN IV ONE (10:00)
[2018-12-03 11:00] VITALS: BP 125/63
== END 2018-12-03 11:00 | disposition home or self-care (01) ==
LOC: SDC 08:47
PROVIDERS: ATTEND Nurse Practitioner Family
DX: E86.0 Dehydration (principal); R50.9 Fever, unspecified; R05 Cough
CPT/HCPCS: 36415; 80053; 85027; 87804; 96365

== ENCOUNTER → 2020-04-14 | Outpatient (CLI) | payer MEDICARE ==
--- NOTE | 2020-04-14 11:46 | Diagnostic Imaging Report ---
EXAM: Digital mammogram bilateral screening. The current study was also evaluated with a Computer Aided Detection (CAD) system. COMPARISON: The study was compared to the prior exams of 07/23/2017, 06/25/2016 and 06/07/2015. There are no current complaints. FINDINGS: The fibroglandular tissue in both breasts is heterogeneously dense. This does limit the sensitivity of this exam. Overall, there does not appear to have been any significant change when compared to the prior study. No primary or secondary sign of malignancy is noted. IMPRESSION: There is no radiographic evidence for malignancy. ACR BI-RADS Category 1: Negative. Result letter will be mailed to the patient. Note: At least 10% of breast cancer is not imaged by mammography. Dictated by: Dictated on workstation # [id number]
== END ==
LOC: RAD 08:17
PROVIDERS: ATTEND Nurse Practitioner Family
DX: Z12.31 Encounter for screening mammogram for malignant neoplasm of breast (principal)
CPT/HCPCS: 77063; 77067

== ENCOUNTER 2021-06-15 11:13 | Outpatient (CLI) | payer MEDICARE ==
[~2021-06-15] VITALS: Ht 161.3 cm; Wt 51.7 kg
[2021-06-15 11:12] VITALS: BP 122/57
[2021-06-15] MEDS ORDERED: EPINEPHrine INJECTION 1 MG/ML AMP IM PRN (11:15)
[2021-06-15] MEDS ORDERED: diphenhydrAMINE 50 MG/ML INJ (BENADRYL) IV PRN (11:15)
[2021-06-15] MEDS ORDERED: ACETAMINOPHEN 500 MG TAB (TYLENOL) PO PRN (11:15)
[2021-06-15] MEDS ORDERED: ONDANSETRON 4 MG/2 ML (SDV) Z0FRAN IV PRN (11:15)
[2021-06-15] MEDS ORDERED: CASIRIVIMAB/IMDEVIMAB 1,200 MG in NS (IVPB) 250 ML IV ONE (11:15)
[2021-06-15 12:15] VITALS: BP 123/56
== END 2021-06-15 12:54 | disposition home or self-care (01) ==
LOC: INFUSION 11:13
PROVIDERS: ATTEND Nurse Practitioner Family
DX: Z23 Encounter for immunization (principal); U07.1 COVID-19

== ENCOUNTER → 2021-07-02 | Outpatient (CLI) | payer MEDICARE ==
[2021-07-02 10:18] VITALS: BP 121/73
== END ==
LOC: CARD 10:30
PROVIDERS: ATTEND Internal Medicine Cardiovascular Disease
DX: I10 Essential (primary) hypertension (principal); R07.9 Chest pain, unspecified; I25.10 Atherosclerotic heart disease of native coronary artery without angina pectoris
CPT/HCPCS: 93351

== ENCOUNTER → 2021-07-04 | Outpatient (CLI) | payer MEDICARE ==
--- NOTE | 2021-07-04 12:53 | Diagnostic Imaging Report ---
INDICATION: Routine screening. COMPARISON: 04/14/2020 and 07/23/2017. TECHNIQUE: 2D and 3D bilateral screening mammography was performed with CAD. FINDINGS: Both breasts are heterogeneously dense, limiting the sensitivity of mammography. The parenchymal pattern is stable. No mass or malignant-appearing microcalcifications are seen. The axillae are unremarkable. IMPRESSION: No mammographic features suspicious for malignancy are identified. ACR BI-RADS Category 1: Negative. Result letter will be mailed to the patient. Note: At least 10% of breast cancer is not imaged by mammography. Dictated by: Dictated on workstation # [id number]
== END ==
LOC: RAD 10:00
PROVIDERS: ATTEND Family Medicine
DX: Z12.31 Encounter for screening mammogram for malignant neoplasm of breast (principal)
CPT/HCPCS: 77063; 77067

== ENCOUNTER → 2022-03-12 | Outpatient (CLI) | payer MEDICARE ==
--- NOTE | 2022-03-12 16:31 | Diagnostic Imaging Report ---
INDICATION: Postmenopausal screening COMPARISON: 03/13/2012 FINDINGS: AP Spine L1-L4: [BMD (g/cm2): 0.980] [T-Score: -1.8] [Z-Score: 0.3] [BMD Previous: 1.165] [BMD % Change: -15.9] LT Hip Neck: [BMD (g/cm2): 0.661] [T-Score: -2.7] [Z-Score: -0.4] LT Hip Total: [BMD (g/cm2):0.750] [T-Score:-2.0] [Z-Score: 0.1] [BMD Previous: 0.837] [BMD % Change: -10.4] RT Hip Neck: [BMD (g/cm2):0.658] [T-Score:-2.7] [Z-Score:-0.5] RT Hip Total: [BMD (g/cm2):0.740] [T-score:-2.1] [Z-Score:0.0] [BMD Previous:0.856] [BMD % Change:-13.6] *Indicates significant change from prior examination based on 95% confidence level. World Health Organization criteria for BMD interpretation classify patients as Normal (T-score at or above -1.0), Osteopenic (T-score between -1.0 and -2.5) or Osteoporotic (T-score at or below -2.5). LIMITATIONS AND MODIFICATION: None. FRACTURE RISK (FRAX SCORE): The ten year probability of (%): Major Osteoporotic Fracture: [18.2] Hip Fracture: [7.0] IMPRESSION: 1. Osteoporotic 2. interval worsening 3. See below National Osteoporosis Foundation guidelines on when to potentially initiate pharmacologic therapy. Based on the National Osteoporosis Foundation Guidelines, pharmacologic treatment should be initiated in any of the following, unless clinical conditions suggest otherwise: * Any patient with prior fragility fracture of the hip or vertebrae. A spine fracture indicates 5X risk for subsequent spine fracture and 2X risk for subsequent hip fracture. * Osteoporosis (T-score <-2.5). * Postmenopausal women and men age 50 and older with low bone mass/osteopenia (T-score between -1.0 and -2.5) by DXA and 10-year major osteoporotic fracture greater than 20% or a 10-year probability of hip fracture greater than 3%. These fracture risks are supplied above in the FRAX score, if applicable. * Clinician judgement and/or patient preferences may indicate treatment for people with 10-year fracture probabilities above or below these levels. Dictated by: Dictated on workstation # [id number]
== END ==
LOC: RAD 13:30
PROVIDERS: ATTEND Nurse Practitioner Family
DX: Z78.0 Asymptomatic menopausal state (principal); Z13.820 Encounter for screening for osteoporosis; M81.0 Age-related osteoporosis without current pathological fracture
CPT/HCPCS: 77080